=== PATIENT | female | born 1960 | race Caucasian/White ===

== ENCOUNTER 2019-06-26 11:45 | Inpatient (IN) | payer OTHER ==
[~2019-06-26] VITALS: Ht 160 cm; Wt 86.2 kg
[2019-06-26 12:14] VITALS: BP 124/75
--- NOTE | 2019-06-26 13:49 | NUR ---
PT AMBULATED TO BED 2
[2019-06-26] MEDS ORDERED: ACETAMINOPHEN 325 MG TAB PO ONE (14:10)
[2019-06-26] MEDS ORDERED: KETOROLAC 15 MG/ML VIAL IM ONE (14:10)
--- NOTE | 2019-06-26 14:13 | NUR ---
C/O >1 MONTH INTERMITTENT LEFT TEMPORAL HEADACHE WITH NAUSEA----DENIES INJURY OR TRAUMA. DIFFERECE TO PT IS BANUELOS ARE MORE FREQUENT FULL CLEAR SPEECH, AMBULATORY WITH STEADY GAIT
[2019-06-26 14:52] LABS: BASOPHILS # (AUTO) 0.1 K/uL (0.00-0.22); BASOPHILS % (AUTO) 0.7 % (0.0-2.0); EOSINOPHILS # (AUTO) 0.1 K/uL (0-0.4); HEMATOCRIT 40.2 % (36-48); HEMOGLOBIN 13.4 g/dL (12.0-16.0); LYMPHOCYTES # (AUTO) 2.2 K/uL (2.5-16.5); LYMPHOCYTES % (AUTO) 28.1 % (20.5-51.1); MEAN CORPUSCULAR HEMOGLOBIN 30 pg (27-31); MEAN CORPUSCULAR HGB CONC 33 g/dL (33-37); MEAN CORPUSCULAR VOLUME 88.8 fL (80-94); MONOCYTES # (AUTO) 0.4 K/uL (0.8-1.0); MONOCYTES % (AUTO) 5.7 % (1.7-9.3); NEUTROPHILS # (AUTO) 4.9 K/uL (1.8-7.7); NEUTROPHILS % (AUTO) 64.5 % (42.2-75.2); PLATELET COUNT (AUTO) 204 K/uL (140-450); RED BLOOD CELL COUNT(AUTO) 4.52 MIL/uL (4.20-5.40); RED CELL DISTRIBUTION WIDTH 12.7 % (11.6-13.7); WHITE BLOOD COUNT (AUTO) 7.7 K/uL (4.8-10.8)
[2019-06-26 15:14] LABS: ANION GAP 10.9 (8-16); CARBON DIOXIDE 28.9 mmol/L (21-32); CREATININE 2.3 mg/dL (0.6-1.3); POTASSIUM 3.8 mmol/L (3.5-5.1)
--- NOTE | 2019-06-26 16:06 | NUR ---
LABS FROM [facility] HAVE BEEN REQUESTED TO COMPARE TO PT'S CURRENT RENAL FUNCTION.
[2019-06-26 17:41] LABS: APPEARANCE,URINE CLEAR (CLEAR); BILIRUBIN,URINE NEGATIVE (NEGATIVE); BLOOD, URINE NEGATIVE (NEGATIVE); COLOR,URINE YELLOW (YELLOW); LEUKOCYTE ESTERASE ,URINE NEGATIVE (NEGATIVE); NITRITE, URINE NEGATIVE (NEGATIVE); PH,URINE 5.5 (5.0-9.0); UGLUCOSE 3+ (NEGATIVE)
[2019-06-26] MEDS ORDERED: GABA300C PO (17:44)
[2019-06-26] MEDS ORDERED: SITA100T8 PO (17:44)
[2019-06-26] MEDS ORDERED: INSU100I7 SQ (17:44)
--- NOTE | 2019-06-26 18:30 | NUR ---
Patient will be admitted to care of DR. MIGUEL. Admited to M/S. Will go to room 120B. Belongings list completed. Report to JUSTEN ZELAYA.
[2019-06-26] MEDS ORDERED: ZOLPIDEM 5 MG TAB PO PRN (18:40)
[2019-06-26] MEDS ORDERED: guaiFENesin DM 200/20 MG-10 ML 10 ML UDC PO PRN (18:40)
[2019-06-26] MEDS ORDERED: MORPHINE SULFATE 2 MG/ML SYR IVP PRN (18:40)
[2019-06-26] MEDS ORDERED: ONDANSETRON 4 MG/2 ML VIAL IVP PRN (18:40)
[2019-06-26] MEDS ORDERED: IPRATROPIUM 0.02% 0.5 MG/2.5 ML NEBU INH PRN (18:40)
[2019-06-26] MEDS ORDERED: LORazepam 2 MG/ML VIAL IVP PRN (18:40)
[2019-06-26] MEDS ORDERED: BISACODYL 10 MG SUPP RC PRN (18:40)
[2019-06-26] MEDS ORDERED: SODIUM PHOSPHATE 118 ML ENEM RC PRN (18:40)
[2019-06-26] MEDS ORDERED: ACETAMINOPHEN 650 MG SUPP RC PRN (18:40)
[2019-06-26] MEDS ORDERED: ACETAMINOPHEN 325 MG TAB PO PRN (18:40)
[2019-06-26] MEDS ORDERED: diphenhydrAMINE 50 MG/ML VIAL IVP PRN (18:40)
[2019-06-26] MEDS ORDERED: DEXTROSE 50% 50 ML SYR IVP PRN (18:40)
[2019-06-26] MEDS ORDERED: cloNIDine 0.1 MG TAB PO PRN (18:40)
[2019-06-26] MEDS ORDERED: DOCUSATE SODIUM 250 MG GELCAP PO PRN (18:40)
[2019-06-26] MEDS ORDERED: MAG SULF 2000 MG/WATER PREMIX 50 ML IV PRN (18:40)
[2019-06-26] MEDS ORDERED: ALBUTEROL 0.083% 2.5 MG/3 ML NEBU INH PRN (18:40)
[2019-06-26] MEDS ORDERED: HYDROcodone/APAP 5/325 MG 1 TAB TAB PO PRN (18:40)
[2019-06-26] MEDS ORDERED: MAGNESIUM OXIDE 400 MG TAB PO PRN (18:40)
[2019-06-26] MEDS ORDERED: ALUMINUM HYD/MAG/SIMETHICONE 30 ML UDC PO PRN (18:40)
[2019-06-26] MEDS ORDERED: POTASSIUM CHLORIDE 10 MEQ TABER PO PRN (18:40)
--- NOTE | 2019-06-26 19:30 | NUR ---
RECEIVED BEDSIDE REPORT FROM AM SHIFT RN FOR PT'S CONTINUITY OF CARE, ADMITTED IN THE DEPT AT 1830. PT IS AAOX4, SAMOAN SPEAKING, IS ON ROOM AIR, HAS LEFT AC 20G SALINE LOCK, DENIES PAIN AT THIS TIME. ORIENTED PT TO THE HOSPITAL ENVIRONMENT AND OILER HELPER ROUTINE, PT VERBALIZED UNDERSTANDING. PT REQUESTED AND PROVIDED FOOD AND DRINKS. SAFETY MEASURES IN PLACE, AND CALL LIGHT IS WITHIN REACH. WILL MONITOR PT THROUGHOUT SHIFT.
--- NOTE | 2019-06-26 20:25 | NUR ---
RECEIVED REPORT FROM KIRSTEN CAMPUZANOTEST HOLE DRILLER NURSE DUE TO CHANGE OF ASSIGNMENT.
[2019-06-26] MEDS: BLOOD GLUCOSE MONITORING 1 DEV DEV FS SCH (21:53)
[2019-06-26] MEDS: INSULIN LISPRO SLIDING SCALE 100 UNITS/ML VIAL SUBQ PRN (21:55)
--- NOTE | 2019-06-26 21:55 | NUR ---
BLOOD GLUCOSE CHECKED AND CHARTED. ADMINISTERED IV SUBQ INSULIN PER SS PROTOCOL. PT TOLERATED IT WELL. PT C/O BANUELOS 8/10, AND LEFT CHEST/AXILLARY. ADMINISTERED PRN PO PAIN MEDICATION ORDERED. PT TOLERATED IT WELL. NBA PLAYER PHONE USED TO OBTAIN ASSESSMENT. NBA PLAYER # [id number] ROSALES. PT VERBALIZED UNDERSTANDING RE: HOSPITALIZATION. WILL CONTINUE TO MONITOR PT.
[2019-06-26] MEDS: HYDROcodone/APAP 5/325 MG 1 TAB TAB PO PRN (22:02)
--- NOTE | 2019-06-26 23:40 | NUR ---
VS CHECKED AND CHARTED. PT LYING DOWN LISTENING TO MUSIC, REPORTS PAIN DECREASED, AND TOLERABLE. DENIES ANY OTHER NEEDS. WILL CONTINUE TO MONITOR PT.
[2019-06-27] VITALS: BP 98/55
--- NOTE | 2019-06-27 02:00 | NUR ---
PT LYING DOWN ASLEEP WITH NO SIGNS OF DISTRESS.
--- NOTE | 2019-06-27 04:00 | NUR ---
PT STILL ASLEEP WITH NO SIGNS OF DISTRESS. WILL CONTINUE TO MONITOR PT.
[2019-06-27] MEDS: BLOOD GLUCOSE MONITORING 1 DEV DEV FS SCH ×4 (05:51→20:36)
--- NOTE | 2019-06-27 05:55 | NUR ---
BLOOD GLUCOSE CHECKED AND CHARTED. NO INSULIN COVERAGE NEEDED. PT DENIES ANY PAIN AT THIS TIME. PT'S NEEDS MET. WILL ENDORSE PT TO AM SHIFT RN FOR PT'S CONTINUITY OF CARE.
--- NOTE | 2019-06-27 06:45 | NUR ---
PT C/O BANUELOS AND NAUSEA. ADMINISTERED IVP ANTI NAUSEA MEDICATION AND PO PAIN MEDICATION ORDERED. PT TOLERATED THEM WELL. PT TEACHING GIVEN, KEEP HOB ELEVATED, DRINK FLUIDS TOLERATED, PT VERBALIZED UNDERSTANDING.
[2019-06-27] MEDS: HYDROcodone/APAP 5/325 MG 1 TAB TAB PO PRN (06:46)
--- NOTE | 2019-06-27 07:25 | NUR ---
REPORT RECEIVED FROM NURSE MARSH. PT SLEEPING APPEARS COMFORTABLE. CALL LIGHT AND PERSONAL ITEMS WITHIN EASY REACH, SAFETY PRECATIONS IN PLACE, WILL CONTINUE TO MONITOR.
[2019-06-27 08:00] VITALS: BP 98/57
[2019-06-27] MEDS: GABAPENTIN 300 MG CAP PO SCH ×3 (08:31→16:43)
--- NOTE | 2019-06-27 08:34 | NUR ---
PATIENT HAS BEEN SCREENED AND CATEGORIZED MODERATE NUTRITION RISK. PATIENT WILL BE SEEN WITHIN 3-5 DAYS OF ADMISSION. 06/29/19 07/01/[address]
--- NOTE | 2019-06-27 10:25 | NUR ---
PT AWAKE A/O ABLE TO COMMUNICATE NEEDS, VISITOR AT BEDSIDE, PT C/O NAUSEA UNRELIEVED BY CURRENT MEDICATION, PAGED, AWAITING CALL BACK. PT C/O HEADACHE, REFUSING PAIN MEDICATION AT THIS TIME, OFFERED DIVERSIONAL ACTIVITY. PT WANTS TO WAIT TO HEAR IF SHE CAN RECEIVE ADDITIONAL MEDICATION FOR NAUSEA PRIOR TO RECEIVING PAIN MEDICATION. CALL LIGHT AND PERSONAL ITEMS REMAIN WITHIN EASY REACH, SAFETY PRECAUTIONS IN PLACE, WILL CONTINUE TO MONITOR.
[2019-06-27] MEDS ORDERED: PROMETHAZINE 25 MG/ML VIAL IVP PRN (11:55)
[2019-06-27] MEDS: PANTOPRAZOLE 40 MG INJ VIAL IVP SCH (12:16)
[2019-06-27] MEDS: INSULIN LISPRO SLIDING SCALE 100 UNITS/ML VIAL SUBQ PRN ×2 (12:28→20:38)
--- NOTE | 2019-06-27 13:30 | NUR ---
Pt sleeping at this time, appears comfortable, no s/s of acute distress noted at this time. Call light and personal items remain within reach, safety precautions in place, will continue to monitor.
[2019-06-27] MEDS: NACL 0.9% 1,000 ML IV SCH ×2 (13:49→23:20)
[2019-06-27 16:00] VITALS: BP 95/48
--- NOTE | 2019-06-27 16:25 | NUR ---
RECEIVED REPORT FROM [facility]. PT IS ALERT AND ORIENTED, NO SIGNS OF DISTRESS. BLOOD GLUCOSE TAKEN= 135. NO COVERAGE NEEDED. CALL LIGHT WITHIN PT'S REACH, BED ON LOW. SIDERAILS UP. WILL CONTINUE TO MONITOR
[2019-06-27 16:27] LABS: CARBON DIOXIDE 27.9 mmol/L (21-32); CREATININE 0.8 mg/dL (0.6-1.3); POTASSIUM 3.9 mmol/L (3.5-5.1)
--- NOTE | 2019-06-27 16:45 | NUR ---
SCHEDULED MEDS GIVEN. PT TOLERATED WELL. WILL CONTINUE TO MONITOR
--- NOTE | 2019-06-27 16:55 | NUR ---
BASIL assessment/discharge plan Basic Screen: Yes Name: [facility] Home Relationship: friend Pre-Admission Living Arrangements: Lives with Other Other: daughter: Britta Prior ADL Independent Current Home Health Name/Tel: N/A Current DME/02 Name/Tel: cane, walker, blood glucose monitor Current Hospice Name/Tel: N/A Current Dialysis Name/Tel: N/A Healthcare Decision Maker: Patient Advance Directive No Information Taught: Advance Directive Community Resources Person Taught: Patient Teaching Tools: Community Resources Computer Generated Print Verbal Factors Affecting Learning: None Participation Level: Active Evaluation: Gestures Understanding Verbalizes Understanding Educator: BASIL Sparks Discipline: Case Mgt/Social Svcs Tentative Discharge Plan Summary: Patient is a 59 year old female admitted for acute renal failure. I met with patient at bedside. Patient alert and oriented x4. Patient speaks Czech. Patient lives at home with her daughter Britta and plans to return home upon discharge. Patient would like her friend Mi Lott to be contacted in case of an emergency. Patient's pcp is Kathy Mortensen and she does not have any difficulty filling her prescriptions at pharmacy. She denied hx of mental health and alcohol/substance abuse. I provided her with education on [employer] www.[employer].org for community resources. Woodworker and/or Metal Buffer will follow up as needed. Signature: BASIL Sparks Date: Jun 27, 2019
--- NOTE | 2019-06-27 17:50 | NUR ---
FREQUENT ROUNDINGS DONE. PT IS SLEEPING, NO SIGNS OF DISTRESS. CALL LIGHT WITHIN PT'S REACH. WILL CONTINUE TO MONITOR
--- NOTE | 2019-06-27 19:20 | NUR ---
REPORT GIVEN TO BUSINESS EXCELLENCE LEADER NURSE FOR CONTINUITY OF CARE. CALL LIGHTW ITHIN PT'S REACH. PT IS STABLE.
--- NOTE | 2019-06-27 19:30 | NUR ---
RECEIVED BEDSIDE REPORT FROM AM SHIFT RN FOR PT'S CONTINUITY OF CARE. PT IS LYING DOWN ASLEEP WITH NO SIGNS OF DISTRESS. PT IS ON ROOM AIR, HAS LEFT AC 20G WITH NS AT 100ML/HR. SAFETY MEASURES IN PLACE AND CALL LIGHT IS WITHIN REACH. WILL MONITOR PT THROUGHOUT SHIFT.
--- NOTE | 2019-06-27 20:38 | NUR ---
BLOOD GLUCOSE CHECKED AND CHARTED. PT ADMINISTERED INSULIN SUBQ PER SS ORDERED. PT TOLERATED IT WELL. PT DENIES ANY PAIN OR NEEDS AT THIS TIME. WILL CONTINUE TO MONITOR PT.
--- NOTE | 2019-06-27 22:30 | NUR ---
PT ASLEEP WITH NO SIGNS OF DISTRESS. WILL CONTINUE TO MONITOR PT.
[2019-06-28] VITALS: BP 84/53
--- NOTE | 2019-06-28 00:25 | NUR ---
VS CHECKED AND CHARTED BY PIG MACHINE OPERATOR, NOTIFIED WITH LOW BP. PT REPOSITIONED AND USED OTHER EXTREMITIES FOR RE-CHECK, STILL HYPOTENSIVE. PAGED MD BIOLOGY RESEARCH ASSISTANT FOR REPORT AND ANY FURTHER ORDERS.
--- NOTE | 2019-06-28 00:40 | NUR ---
RECEIVED CALL FROM FOOD CHECKER , DR. ENGEL. NEW ORDER OF NORMAL SALINE IV 500 ML BOLUS TO BE INFUSED NOW. WILL CARRY OUT ORDER.
[2019-06-28] MEDS ORDERED: NACL 0.9% 500 ML IV ONE (00:45)
--- NOTE | 2019-06-28 00:58 | NUR ---
ADMINISTERED IV BOLUS ORDERED. WILL RE-CHECK BP AFTER INFUSION.
--- NOTE | 2019-06-28 02:30 | NUR ---
RE-CHECKED BP 90/48. WILL CONTINUE TO MONITOR PT.
--- NOTE | 2019-06-28 05:30 | NUR ---
PT ASLEEP. BLOOD GLUCOSE CHECKED AND CHARTED. BLOOD PRESSURE RE-CHECKED HIGHEST BP READING 90/52 (62) ON THE RIGHT ARM. PT ASYMPTOMATIC, DENIES ANY PAIN POR DISCOMFORT. WILL ENDORSE TO AM SHIFT RN FOR PT'S CONTINUITY OF CARE.
[2019-06-28 06:18] LABS: ANION GAP 9.9 (8-16); CARBON DIOXIDE 26.9 mmol/L (21-32); CREATININE 0.7 mg/dL (0.6-1.3); POTASSIUM 3.8 mmol/L (3.5-5.1)
[2019-06-28] MEDS: BLOOD GLUCOSE MONITORING 1 DEV DEV FS SCH ×2 (06:36→11:46)
--- NOTE | 2019-06-28 07:05 | NUR ---
RECEIVED REPORT FROM JUSTEN MARSH. PT AOX4, NO C/O PAIN. IV ON LT AC 20 GA RUNNING IVF PER ORDER. RESPIRATIONS EVEN AND UNLABORED ON RA. ABD SOFT, ACTIVE BS. SKIN IS INTACT, WARM TO TOUCH. REVIEWED POC WITH PT, PT VERBALIZED UNDERSTANDING. PT ON FALL RISK PRECAUTIONS, SAFETY MEASURES IN PLACE, CALL LIGHT WITHIN REACH.
[2019-06-28 08:00] VITALS: BP 104/60
[2019-06-28] MEDS: PANTOPRAZOLE 40 MG INJ VIAL IVP SCH (09:38)
[2019-06-28] MEDS: GABAPENTIN 300 MG CAP PO SCH ×2 (09:38→12:00)
--- NOTE | 2019-06-28 09:38 | NUR ---
ADMINISTERED MEDICATIONS PER ORDER, PT VERBALIZED UNDERSTANDING OF INDICATION AND POTENTIAL SIDE EFFECTS.
[2019-06-28] MEDS: NACL 0.9% 1,000 ML IV SCH (09:39)
--- NOTE | 2019-06-28 11:00 | NUR ---
BS AT 167, NO S/S OF HYPERGLYCEMIA, WILL MEDICATE HUMALOG PER SLIDING SCALE.
[2019-06-28] MEDS: INSULIN LISPRO SLIDING SCALE 100 UNITS/ML VIAL SUBQ PRN (11:56)
--- NOTE | 2019-06-28 13:10 | NUR ---
PT IS AWARE THAT SHE WILL BE DISCHARGED TODAY. PER PT, FAMILY WILL PICK HER UP BETWEEN [phone].
[2019-06-28] MEDS ORDERED: ACETAMINOPHEN 325 MG TAB PO PRN (15:45)
--- NOTE | 2019-06-28 15:57 | NUR ---
PT GIVEN DISCHARGE INSTRUCTIONS. USED [employer] FOR TRANSLATION #[id number]. ALL PAPERWORK SIGNED, ALL QUESTIONS ANSWERED. ALL BELONGINGS IN PT POSSESSION. IV DISCONTINUED WITH CANNULA INTACT, NO ACTIVE BLEEDING NOTED. WRISTBANDS REMOVED. PT REFUSED WHEELCHAIR, WALKING OUT OF UNIT WITH STEADY GAIT, FAMILY MEMBER PRESENT AT SIDE. PT IN STABLE CONDITION.
== END 2019-06-28 16:16 | disposition home health service (06) | DRG 641 ==
LOC: MED 11:45 → MTU 17:38
PROVIDERS: ADMIT Internal Medicine Pulmonary Disease; ATTEND Internal Medicine Pulmonary Disease
DX: E86.0 Dehydration (principal); N17.9 Acute kidney failure, unspecified; I12.9 Hypertensive chronic kidney disease with stage 1 through stage 4 chronic kidney disease, or unspecified chronic kidney disease; E78.00 Pure hypercholesterolemia, unspecified; E78.5 Hyperlipidemia, unspecified; N18.9 Chronic kidney disease, unspecified; E11.22 Type 2 diabetes mellitus with diabetic chronic kidney disease; E11.40 Type 2 diabetes mellitus with diabetic neuropathy, unspecified; Z79.84 Long term (current) use of oral hypoglycemic drugs; Z79.899 Other long term (current) drug therapy
CPT/HCPCS: 36415; 76770; 80048; 81003; 82948; 85025; 87081; 96372; 99285; C9113; J1815; J1885; J2270; J2405; J2550; J7030; Q0092

== ENCOUNTER 2021-01-13 10:05 | Emergency (ER) | payer OTHER ==
[~2021-01-13] VITALS: Ht 160 cm; Wt 63.5 kg
[~2021-01-13 10:05] MED LIST: GABA300C PO; INSU100I7 SQ; SITA100T8 PO
[2021-01-13 10:12] VITALS: BP 129/74
--- NOTE | 2021-01-13 10:22 | NUR ---
PT AMBULATED WITH WALKER TO BED 9
[2021-01-13] MEDS ORDERED: KETOROLAC 30 MG/ML VIAL IVP ONE (10:55)
[2021-01-13] MEDS ORDERED: NACL 0.9% 1,000 ML IV SCH (10:55)
[2021-01-13] MEDS ORDERED: ONDANSETRON 4 MG/2 ML VIAL IVP ONE (10:55)
[2021-01-13 11:15] LABS: APPEARANCE,URINE CLEAR (CLEAR); BILIRUBIN,URINE NEGATIVE (NEGATIVE); BLOOD, URINE NEGATIVE (NEGATIVE); COLOR,URINE YELLOW (YELLOW); LEUKOCYTE ESTERASE ,URINE NEGATIVE (NEGATIVE); NITRITE, URINE NEGATIVE (NEGATIVE); PH,URINE 5.5 (5.0-9.0); UGLUCOSE 1+ (NEGATIVE)
[2021-01-13 11:21] LABS: BASOPHILS # (AUTO) 0.1 K/uL (0.00-0.22); BASOPHILS % (AUTO) 0.9 % (0.0-2.0); EOSINOPHILS # (AUTO) 0.2 K/uL (0-0.4); EOSINOPHILS % (AUTO) 2.5 % (0.0-4.0); HEMATOCRIT 38.5 % (36-48); HEMOGLOBIN 13.2 g/dL (12.0-16.0); LYMPHOCYTES # (AUTO) 1.7 K/uL (2.5-16.5); LYMPHOCYTES % (AUTO) 26.6 % (20.5-51.1); MEAN CORPUSCULAR HEMOGLOBIN 30 pg (27-31); MEAN CORPUSCULAR HGB CONC 34 g/dL (33-37); MEAN CORPUSCULAR VOLUME 87.4 fL (80-94); MONOCYTES # (AUTO) 0.4 K/uL (0.8-1.0); MONOCYTES % (AUTO) 6.9 % (1.7-9.3); NEUTROPHILS % (AUTO) 63.1 % (42.2-75.2); PLATELET COUNT (AUTO) 188 K/uL (140-450); RED BLOOD CELL COUNT(AUTO) 4.41 MIL/uL (4.20-5.40); RED CELL DISTRIBUTION WIDTH 12.6 % (11.6-13.7); WHITE BLOOD COUNT (AUTO) 6.3 K/uL (4.8-10.8)
--- NOTE | 2021-01-13 11:30 | NUR ---
IV ACCESS TO ACR RIGHT 20G IN PLACE, BLOOD TAKEN AND HANDED TO POT FEEDER. IVF RUNNING
[2021-01-13 11:37] LABS: ALBUMIN 3.6 g/dL (3.4-5.0); ANION GAP 10.9 (8-16); CARBON DIOXIDE 26.8 mmol/L (21-32); CREATININE 0.8 mg/dL (0.6-1.3); POTASSIUM 3.7 mmol/L (3.5-5.1); TOTAL BILIRUBIN 0.5 mg/dL (0.0-1.0)
--- NOTE | 2021-01-13 12:23 | NUR ---
PT BACK FROM CT AND CONNECTED TO FLUIDS
[2021-01-13] MEDS ORDERED: IBUP-2213 PO (13:23)
[2021-01-13] MEDS ORDERED: ONDA-24 SL (13:23)
[2021-01-13] MEDS ORDERED: FAMO-92 PO (13:23)
[2021-01-13 13:30] VITALS: BP 110/71
--- NOTE | 2021-01-13 13:30 | NUR ---
Patient discharged with v/s stable. Written and verbal after care instructions ABOUT MEDICATIONS, PANCREATITIS EATING PLAN AND ABDOMINAL PAIN given and explained. Patient alert, oriented and verbalized understanding of instructions. Ambulatory with steady gait. All questions addressed prior to discharge. ID band removed. Patient advised to follow up with PMD. Rx of PEPCID, IBUPROFEN, AND ZOFRAN ODT given. Patient educated on indication of medication including possible reaction and side effects. Opportunity to ask questions provided and answered.
== END 2021-01-13 13:30 | disposition home or self-care (01) ==
LOC: MED 10:05
DX: R10.32 Left lower quadrant pain (principal); K85.90 Acute pancreatitis without necrosis or infection, unspecified; E11.9 Type 2 diabetes mellitus without complications; I10 Essential (primary) hypertension; Z79.899 Other long term (current) drug therapy
CPT/HCPCS: 36415; 74177; 80053; 81003; 83690; 85025; 96361; 96374; 96375; 99285; J1885; J2405; Q9967; J7030